=== PATIENT | male | born 1945 | race Caucasian/White ===

== ENCOUNTER → 2020-05-02 | Day surgery (SDC) | payer OTHER ==
[2020-04-26 11:58] LABS: Urine WBC None Seen /hpf (0 - 3)
[2020-04-26 12:09] LABS: Basophils # (auto) 0.1 10 ^3/uL (0-0.2); Basophils % (auto) 0.8 % (0.0-2.0); Eosinophils # (auto) 0.2 10 ^3/uL (0-0.8); Eosinophils % (auto) 2.1 % (0.0-7.0); Hematocrit 41.1 % (41.0-53.0); Hemoglobin 13.1 g/dL (13.5-17.5); Lymphocytes # (auto) 1.4 10 ^3/uL (0.4-5.4); Mean Corpuscular Hemoglobin 26.5 pg (28.0-32.0); Mean Corpuscular Hgb Conc. 31.9 g/dL (32.0-36.0); Monocytes # (auto) 0.5 10 ^3/uL (0-1.3); Neutrophils # (auto) 5.4 10 ^3/uL (1.6-8.6); White Blood Cell 7.6 10^3/uL (4.4-10.8)
[2020-04-26 12:11] LABS: Lymphocytes % (auto) 18.7 % (10.0-50.0); Mean Corpuscular Volume 83.1 fL (80.0-100.0); Neutrophils % (auto) 71.4 % (37.0-80.0); Platelet Count (auto) 241 10^3/uL (140-450); Red Blood Cells 4.95 10^6/uL (4.5-5.90); Red Cell Distribution Width 15.5 % (11.8-14.3)
[2020-04-26 12:17] LABS: INR 2.76 (0.9-1.15); Partial Thromboplastin Time 42.1 sec (23.64-32.05)
[2020-04-26 12:33] LABS: Albumin 3.7 g/dL (3.4-5.0); Calcium 9.3 mg/dL (8.5-10.1); Potassium 4.8 mmol/L (3.5-5.1)
[2020-04-26 12:36] LABS: BUN/Creatinine Ratio 10.7; Bilirubin, Total 0.3 mg/dL (0.2-1.0); Total Protein 8.3 g/dL (6.4-8.2); Urine Bacteria NONE SEEN /hpf (None Seen)
[2020-04-26 12:46] LABS: Urine Blood 3+ /uL (Negative)
[2020-04-26 12:47] LABS: Urine Specific Gravity 1.021 (1.001-1.035)
[~2020-05-02] VITALS: Ht 188 cm; Wt 136.1 kg
[~2020-05-02] MED LIST: ACCU-CHEK COMFORT CURVE STRIP VI ONE; AMLO10TA13 PO; CARV25TA55 PO; CHOL200021 PO; ETOMIDATE (2MG/ML) 20ML VIAL IV ONE; FERR-20 PO; FINA5TAB4 PO; GLIM4TAB42 PO; GLYCOPYRROLATE 0.2 MG/ML 1ML VIAL ONE; HYDROmorphone HCL 2 MG/ML VL IV PRN; LIDOCAINE 1% HCL (LOCAL ANESTH.) INJ 20ML MDV ONE; LOSA-39 PO; METF-372 PO; METOCLOPRAMIDE HCL 5MG/ml INJ 2ml VIAL ONE; MIDAZOLAM HCL 1MG/1ML-2 ML VIAL ONE; NALOXONE HCL 0.4 MG/ML VIAL IV PRN; NEOSTIGMINE 1 MG/ML INJ (10mg/10ML VIAL) ONE; OMEG100078 PO; ONDANSETRON HCL 4 MG/2 ML VIAL IV PRN; PRAV20TA3 PO; ROCURONIUM 10MG/ML 10ML VIAL IV ONE; SITA100T7 PO; STERILE WATER 10 ML ONE; SUCCINYLCHOLINE CHLORIDE 20 MG/ML 10ML VIAL IV ONE; WARF5TAB71 PO; ceFAZolin 1GM/50ML 50 ML IV ONE; ePHEDrine SULFATE 50 MG/ML AMP ONE; fentaNYL CITRATE 100 MCG/2 ML VL ONE
[2020-05-02 10:03] VITALS: BP 116/62
== END | disposition home or self-care (01) ==
LOC: SUR 06:12
PROVIDERS: ATTEND Urology
DX: R31.0 Gross hematuria (principal); C61 Malignant neoplasm of prostate; I25.10 Atherosclerotic heart disease of native coronary artery without angina pectoris; E66.01 Morbid (severe) obesity due to excess calories; E11.9 Type 2 diabetes mellitus without complications; I10 Essential (primary) hypertension; G47.30 Sleep apnea, unspecified; I49.9 Cardiac arrhythmia, unspecified; G89.29 Other chronic pain; Z96.89 Presence of other specified functional implants; Z68.39 Body mass index [BMI] 39.0-39.9, adult; Z85.528 Personal history of other malignant neoplasm of kidney
CPT/HCPCS: 36415; 52240; 80053; 81001; 82962; 85025; 85610; 85730; 87086; J0330; J0690; J2001; J2250; J2765; J3010; U0003

== ENCOUNTER → 2020-07-04 | Day surgery (SDC) | payer OTHER ==
[2020-06-28 10:39] LABS: Urine WBC None Seen /hpf (0 - 3)
[2020-06-28 10:44] LABS: Lymphocytes # (auto) 1.2 10 ^3/uL (0.4-5.4); Mean Corpuscular Hemoglobin 26.6 pg (28.0-32.0); Monocytes # (auto) 0.4 10 ^3/uL (0-1.3); Neutrophils # (auto) 4.3 10 ^3/uL (1.6-8.6); Neutrophils % (auto) 70.5 % (37.0-80.0); Red Cell Distribution Width 14.6 % (11.8-14.3); White Blood Cell 6.1 10^3/uL (4.4-10.8)
[2020-06-28 10:46] LABS: Basophils # (auto) 0.1 10 ^3/uL (0-0.2); Basophils % (auto) 0.9 % (0.0-2.0); Eosinophils # (auto) 0.1 10 ^3/uL (0-0.8); Eosinophils % (auto) 2.4 % (0.0-7.0); Hematocrit 44.4 % (41.0-53.0); Hemoglobin 14.1 g/dL (13.5-17.5); Lymphocytes % (auto) 19.6 % (10.0-50.0); Mean Corpuscular Hgb Conc. 31.8 g/dL (32.0-36.0); Mean Corpuscular Volume 83.7 fL (80.0-100.0); Monocytes % (auto) 6.6 % (0.0-12.0); Nucleated Red Blood Cells % 0.1 %; Platelet Count (auto) 173 10^3/uL (140-450); Red Blood Cells 5.31 10^6/uL (4.5-5.90)
[2020-06-28 11:02] LABS: INR 2.84 (0.9-1.15); Partial Thromboplastin Time 44.3 sec (23.0-31.2); Urine Bacteria NONE SEEN /hpf (None Seen); Urine Blood 3+ /uL (Negative)
[2020-06-28 11:03] LABS: Urine Specific Gravity 1.022 (1.001-1.035)
[2020-06-28 11:37] LABS: Albumin 3.9 g/dL (3.4-5.0); Calcium 9.2 mg/dL (8.5-10.1); Potassium 4.4 mmol/L (3.5-5.1)
[2020-06-28 11:42] LABS: BUN/Creatinine Ratio 12.3; Bilirubin, Total 0.5 mg/dL (0.2-1.0); Total Protein 8.6 g/dL (6.4-8.2)
[~2020-07-04] VITALS: Ht 188 cm; Wt 136.1 kg
[~2020-07-04] MED LIST changes: -ACCU-CHEK COMFORT CURVE STRIP VI ONE; +CIPROFLOXACIN 400MG/200ML 200 ML IV ONE; +DexAMETHasone SOD PHOS 10MG/1ML VIAL INJ ONE; -ETOMIDATE (2MG/ML) 20ML VIAL IV ONE; +GLIM2TAB33 PO; -GLYCOPYRROLATE 0.2 MG/ML 1ML VIAL ONE; +LABETALOL HCL 5 MG/ML 4ML SYRINGE IV PRN; -LIDOCAINE 1% HCL (LOCAL ANESTH.) INJ 20ML MDV ONE; -METOCLOPRAMIDE HCL 5MG/ml INJ 2ml VIAL ONE; +MIDAZOLAM HCL 1MG/1ML-2 ML VIAL IV PRN; +MORPHINE SULFATE 4 MG/ML SYR/VIAL IV PRN; -NALOXONE HCL 0.4 MG/ML VIAL IV PRN; -NEOSTIGMINE 1 MG/ML INJ (10mg/10ML VIAL) ONE; +PROPOFOL 10 MG/ML 20 ML IV ONE; -ROCURONIUM 10MG/ML 10ML VIAL IV ONE; -STERILE WATER 10 ML ONE; +TETRACAINE 1% INJ 2 ML VIAL IJ ONE; -ceFAZolin 1GM/50ML 50 ML IV ONE; +ePHEDrine SULFATE 50 MG/ML AMP IV PRN; -ePHEDrine SULFATE 50 MG/ML AMP ONE; +mitoMYcin 40 MG in STERILE WATER 60 ML IS ONE
[2020-07-04 07:25] LABS: INR 1.25 (0.9-1.15); Partial Thromboplastin Time 31.7 sec (23.0-31.2)
[2020-07-04 14:00] VITALS: BP 152/73
== END | disposition home or self-care (01) ==
LOC: SUR 06:10
PROVIDERS: ATTEND Urology
DX: R31.0 Gross hematuria (principal); K21.9 Gastro-esophageal reflux disease without esophagitis; G47.33 Obstructive sleep apnea (adult) (pediatric); E11.22 Type 2 diabetes mellitus with diabetic chronic kidney disease; I12.9 Hypertensive chronic kidney disease with stage 1 through stage 4 chronic kidney disease, or unspecified chronic kidney disease; N18.3 Chronic kidney disease, stage 3 (moderate); E66.01 Morbid (severe) obesity due to excess calories; Z68.38 Body mass index [BMI] 38.0-38.9, adult; Z85.51 Personal history of malignant neoplasm of bladder; Z96.89 Presence of other specified functional implants; Z20.828 Contact with and (suspected) exposure to other viral communicable diseases
CPT/HCPCS: 36415; 52234; 80053; 81001; 82962; 85025; 85610; 85730; 88307; 88342; J0330; J0744; J1100; J2250; J2704; J3010; J9280; U0003

== ENCOUNTER → 2021-01-16 | Day surgery (SDC) | payer OTHER ==
[2021-01-13 13:03] LABS: Basophils # (auto) 0 10 ^3/uL (0-0.2); Basophils % (auto) 0.7 % (0.0-2.0); Eosinophils # (auto) 0.2 10 ^3/uL (0-0.8); Eosinophils % (auto) 2.4 % (0.0-7.0); Hematocrit 37.3 % (41.0-53.0); Hemoglobin 12.1 g/dL (13.5-17.5); Lymphocytes # (auto) 1.3 10 ^3/uL (0.4-5.4); Lymphocytes % (auto) 19.9 % (10.0-50.0); Mean Corpuscular Hemoglobin 27.6 pg (28.0-32.0); Mean Corpuscular Hgb Conc. 32.5 g/dL (32.0-36.0); Monocytes # (auto) 0.5 10 ^3/uL (0-1.3); Monocytes % (auto) 7.6 % (0.0-12.0); Neutrophils # (auto) 4.6 10 ^3/uL (1.6-8.6); Neutrophils % (auto) 69.4 % (37.0-80.0); Nucleated Red Blood Cells % 0.1 %; Platelet Count (auto) 229 10^3/uL (140-450); Red Blood Cells 4.39 10^6/uL (4.5-5.90); Red Cell Distribution Width 15.9 % (11.8-14.3); White Blood Cell 6.7 10^3/uL (4.4-10.8)
[2021-01-13 13:26] LABS: INR 1.4 (0.9-1.15); Partial Thromboplastin Time 32.3 sec (23.0-31.2)
[2021-01-13 13:46] LABS: Urine Bacteria MANY /hpf (None Seen); Urine WBC 92 /hpf (0 - 3)
[2021-01-13 13:47] LABS: Urine Blood 3+ /uL (Negative)
[2021-01-13 14:52] LABS: Potassium 4.5 mmol/L (3.5-5.1)
[2021-01-13 15:03] LABS: Albumin 3.9 g/dL (3.4-5.0); BUN/Creatinine Ratio 13.5; Bilirubin, Total 0.4 mg/dL (0.2-1.0); Total Protein 8.3 g/dL (6.4-8.2)
[~2021-01-16] VITALS: Ht 188 cm; Wt 136.1 kg
[~2021-01-16] MED LIST changes: +AMLO-496 PO; -AMLO10TA13 PO; +CIPROFLOXACIN 400MG/200ML 0 ML IV ONE; -CIPROFLOXACIN 400MG/200ML 200 ML IV ONE; -DexAMETHasone SOD PHOS 10MG/1ML VIAL INJ ONE; -GLIM2TAB33 PO; +GLYCOPYRROLATE 0.2 MG/ML 1ML VIAL IV ONE; -HYDROmorphone HCL 2 MG/ML VL IV PRN; +IOHEXOL 300 MG/ML 100ML BOTTLE IJ ONE; -LABETALOL HCL 5 MG/ML 4ML SYRINGE IV PRN; -MIDAZOLAM HCL 1MG/1ML-2 ML VIAL IV PRN; -MORPHINE SULFATE 4 MG/ML SYR/VIAL IV PRN; +ONDANSETRON HCL 4 MG/2 ML VIAL ONE; -SUCCINYLCHOLINE CHLORIDE 20 MG/ML 10ML VIAL IV ONE; -TETRACAINE 1% INJ 2 ML VIAL IJ ONE; +ceFAZolin 1GM VL ONE; -ePHEDrine SULFATE 50 MG/ML AMP IV PRN; +ePHEDrine SULFATE 50 MG/ML AMP ONE; -mitoMYcin 40 MG in STERILE WATER 60 ML IS ONE
[2021-01-16 17:15] VITALS: BP 155/79
== END | disposition home or self-care (01) ==
LOC: SUR 06:46
PROVIDERS: ATTEND Urology
DX: D49.4 Neoplasm of unspecified behavior of bladder (principal); C67.2 Malignant neoplasm of lateral wall of bladder; C67.0 Malignant neoplasm of trigone of bladder; N35.919 Unspecified urethral stricture, male, unspecified site; I10 Essential (primary) hypertension; E11.9 Type 2 diabetes mellitus without complications; E66.9 Obesity, unspecified; Z68.38 Body mass index [BMI] 38.0-38.9, adult; Z79.899 Other long term (current) drug therapy; Z90.5 Acquired absence of kidney; Z95.2 Presence of prosthetic heart valve; Z98.890 Other specified postprocedural states; Z20.822 Contact with and (suspected) exposure to COVID-19
CPT/HCPCS: 36415; 52235; 80053; 81001; 82962; 85025; 85610; 85730; 87086; 88305; J0690; J2250; J2405; J2704; J3010; Q9967; U0003